=== PATIENT | male | born 1940 | race Caucasian/White ===

== ENCOUNTER → 2017-11-25 09:27 | Outpatient (CLI) | payer MEDICARE, OTHER, SELFPAY ==
[2017-11-25 10:53] LABS: Blood Urea Nitrogen 34 mg/dL (9-20); Calcium 9.3 mg/dL (8.4-10.2); Carbon Dioxide 30 mmol/L (22-32); Chloride 99 mmol/L (98-107); Estimated Glomerular Filt Rate > 60.0 mL/min (>60); Glucose 90 mg/dL (80-110); HEMOLYSIS < 15 (0-50); Sodium 137 mmol/L (137-145)
[2017-11-25 10:56] LABS: Potassium 5.4 mmol/L (3.4-5.1)
== END ==
PROVIDERS: PCP Family Medicine; Visit Provider Specialist
DX: C61 Malignant neoplasm of prostate (principal)
CPT/HCPCS: 36415; 80048

== ENCOUNTER → 2017-12-07 10:48 | Outpatient (CLI) | payer MEDICARE, OTHER, SELFPAY ==
--- NOTE | 2017-12-07 | DI.NM.S_ITS ---
PROCEDURE: NM BONE SCAN WHOLE BODY RADIOPHARMACEUTICAL: 18.6 mCi Tc-99m MDP IV. INDICATIONS: PROSTATE CANCER TECHNIQUE: Delayed whole-body scintigrams were obtained approximately 3-4 hours after intravenous injection of radiotracer. Anterior and posterior views were acquired from vertex to feet. Additional left and right oblique views of the pelvis were obtained. COMPARISON: [facility], CT, CT CHEST ABD PEL W CON, 12/07/2017, 12:12. 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 Additionally, asymmetric left greater than right first costosternal degenerative change can be seen. Over the lower lumbosacral spine degenerative disc disease and facet osteoarthritis is present, documented by CT scanning through this area earlier today, and the nuclear medicine bone scan isotope uptake in this area is commensurate with the degree of degeneration present. Similarly, degenerative change appears present in each knee and at the ankles, less prominent in severity. IMPRESSION: No evidence of osseous metastatic disease related to prostate carcinoma is found. Degenerative changes are present as discussed, most prominent at the mid and lower lumbosacral spine and at the left shoulder and left costosternal joint, first rib. Dictated by: Bill Olvera M.D. on 12/07/2017 at 15:19 Approved by: Bill Olvera M.D. on 12/07/2017 at 15:22
--- NOTE | 2017-12-07 | DI.CT.S_ITS ---
PROCEDURE: CT CHEST ABD PEL W CON INDICATIONS: PROSTATE CANCER TECHNIQUE: After the administration of oral and intravenous contrast, 5 mm thick sections acquired from the lung apices to the symphysis. 5 mm coronal and sagittal reformats were performed, with additional 7 mm coronal MIP reformats through the lungs. For radiation dose reduction, the following was used: automated exposure control, adjustment of mA and/or kV according to patient size. COMPARISON: None. FINDINGS: Image quality: Excellent. CHEST: Lungs and pleura: No acute airspace opacities. No pleural effusions or pneumothorax. Central and peripheral airways appear patent and normal in caliber. Mediastinum: Heart size is normal. No pericardial effusion. No mediastinal or hilar adenopathy by size criteria. Thoracic aorta and central pulmonary arteries are normal in size. Esophagus is normal in caliber. No hiatal hernia. Chest wall: No axillary or supraclavicular adenopathy by size criteria. Thyroid gland appears normal where well visualized. ABDOMEN: Solid organs: Liver is normal in size and enhancement. Gallbladder appears normal. Biliary system is non dilated. Pancreas enhances normally. Spleen is normal in size and enhancement. No adrenal nodules. Kidneys demonstrate normal size and enhancement, without hydronephrosis. Scattered exophytic renal cortical cysts are present bilaterally without evidence of inflammation or a cystic neoplasm associated. Peritoneum and bowel: Bowel loops demonstrate normal wall thickness and caliber. No free fluid or air. Nodes and vessels: No retroperitoneal or mesenteric adenopathy by size criteria. Aorta and inferior vena cava are normal in size. Miscellaneous: No ventral hernias. PELVIS: Genitourinary: Bladder wall thickness is normal. Miscellaneous: No inguinal hernias or adenopathy. Bones: No suspicious bony lesions. No vertebral body compression fractures. IMPRESSION: No evidence for presence of osseous metastatic disease. Moderate degenerative changes are present along the thoracic and lumbosacral spine. No visceral neoplastic involvement is found, no adenopathy is seen. Dictated by: Bill Olvera M.D. on 12/07/2017 at 13:45 Approved by: Bill Olvera M.D. on 12/07/2017 at 13:47
== END ==
PROVIDERS: PCP Family Medicine; Visit Provider Specialist
DX: C61 Malignant neoplasm of prostate (principal); M51.34 Other intervertebral disc degeneration, thoracic region; M51.37 Other intervertebral disc degeneration, lumbosacral region
CPT/HCPCS: 71260; 74177; 78306; A9503; Q9967